=== PATIENT | female | born 1935 | race Caucasian/White ===

== ENCOUNTER 2021-10-09 09:26 | Emergency (ER) | payer MEDICARE ==
[~2021-10-09] VITALS: Ht 152.4 cm; Wt 72.6 kg
[2021-10-09] MEDS ORDERED: IBUPROFEN 600 MG TABLET PO SCH (10:30)
[2021-10-09 10:40] LABS: BASOPHILS % (AUTO) 0.3 % (0.0-5.0); EOSINOPHILS % (AUTO) 0.2 % (0.0-8.0); HEMATOCRIT 40.9 % (36-48); LYMPHOCYTES % (AUTO) 13.4 % (21.0-51.0); MEAN CORPUSCULAR HEMOGLOBIN 30.4 pg (27.0-33.0); MEAN CORPUSCULAR HGB CONC 33.3 g/dL (32.0-36.0); MEAN CORPUSCULAR VOLUME 91.3 fL (79-99); MONOCYTES % (AUTO) 9.2 % (3.0-13.0); NEUTROPHILS % (AUTO) 76.7 % (40.0-77.0); PLATELET COUNT (AUTO) 186 K/uL (130-400); RED BLOOD CELL COUNT(AUTO) 4.48 MIL/uL (4.00-5.50); WHITE BLOOD COUNT (AUTO) 6.4 K/uL (4.8-10.8)
[2021-10-09 10:58] LABS: POTASSIUM 4.2 mmol/L (3.5-5.1)
[2021-10-09 11:09] LABS: ALBUMIN 3.4 g/dL (3.5-5.0); BILIRUBIN,TOTAL 0.6 mg/dL (0.2-1.0); TOTAL PROTEIN, SERUM 7.2 g/dL (6.0-8.3)
[2021-10-09] MEDS ORDERED: IBUP-2070 PO (11:13)
[2021-10-09 11:20] VITALS: BP 140/70
== END 2021-10-09 11:29 | disposition home or self-care (01) ==
LOC: EDH 09:26
DX: S82.892A Other fracture of left lower leg, initial encounter for closed fracture (principal); M81.0 Age-related osteoporosis without current pathological fracture; I10 Essential (primary) hypertension; Z79.1 Long term (current) use of non-steroidal anti-inflammatories (NSAID); W01.0XXA Fall on same level from slipping, tripping and stumbling without subsequent striking against object, initial encounter; Y93.89 Activity, other specified; Y92.89 Other specified places as the place of occurrence of the external cause; Y99.8 Other external cause status
CPT/HCPCS: 29515; 36415; 73610; 80053; 82550; 83874; 84484; 85025; 93005